=== PATIENT | male | born 1970 | race Caucasian/White ===

== ENCOUNTER 2018-03-08 13:16 | Emergency (ER) | payer OTHER ==
[~2018-03-08 13:16] MED LIST: ENALAPRIL MALEA10 MG PO; PROTONIX 40MG T40 MG PO
--- NOTE | 2018-03-08 14:05 | ED HEAD/FACIAL INJ COMPLAINT ---
History of Present Illness General Chief Complaint: Laceration Procedure Stated Complaint: LAC TO HEAD, WORK RELATED INJURY Source: patient Exam Limitations: no limitations Vital Signs & Intake/Output Vital Signs & Intake/Output Vital Signs Date Time Temp Pulse Resp B/P B/P Pulse O2 O2 Flow FiO2 Mean Ox Delivery Rate 03/08 1439 97.1 74 18 148/70 98 Room Air 03/08 1402 99 Room Air 03/08 1322 96.5 71 16 151/86 97 Room Air Allergies Coded Allergies: NO KNOWN ALLERGIES (03/08/18) Reconcile Medications Enalapril Maleate 10 MG TABLET 1 TAB PO DAILY BP (Reported) Pantoprazole Sodium (Protonix) 40 MG TAB 1 TAB PO DAILY GERD Triage Note: PT STOOD UP AND HIT A PIECE OF DUCTWORK WHILE WORKING. LAC TO TOP OF HEAD. UNK TETANUS. Triage Nurses Notes Reviewed? yes Onset: Abrupt Severity: moderate Location: parietal Method of Injury: direct blow HPI: 47-year-old male presents emergency department complaining of laceration to scalp after head injury at work prior to arrival. Patient states that he was standing up when he accidentally hit his head on a sharp metal object. Patient states that there was significant bleeding which she controlled with the Tylenol prior to arrival. Patient denies significant headache, visual changes, neck pain, confusion, nausea. Past History Travel History Traveled to [place] past 21 day No Medical History Any Pertinent Medical History? see below for history Neurological: NONE EENT: allergies Cardiovascular: hypertension, hyperlipidemia Respiratory: NONE Gastrointestinal: NONE Hepatic: NONE Renal: NONE Musculoskeletal: NONE Psychiatric: NONE Endocrine: NONE Blood Disorders: NONE Cancer(s): NONE Tetanus Vaccine: 03/08/18 Surgical History Surgical History: non-contributory Psychosocial History What is your primary language Nigerian Tobacco Use: Never used Family History Hx Contributory? No Review of Systems Review of Systems Constitutional: Reports: no symptoms. EENTM: Reports: no symptoms. Respiratory: Reports: no symptoms. Cardiovascular: Reports: no symptoms. GI: Reports: no symptoms. Genitourinary: Reports: no symptoms. Musculoskeletal: Reports: see HPI. Skin: Reports: see HPI. Neurological/Psychological: Reports: no symptoms. Hematologic/Endocrine: Reports: no symptoms. Immunologic/Allergic: Reports: no symptoms. All Other Systems: Reviewed and Negative Physical Exam Physical Exam General Appearance: well developed/nourished, no apparent distress, alert, awake Head: 4 cm linear laceration to right parietal scalp Eyes: Bilateral: normal appearance, PERRL, EOMI. Ears, Nose, Throat: normal pharynx, hearing grossly normal Neck: normal inspection, supple, full range of motion Respiratory: no respiratory distress Back: normal inspection, normal range of motion Extremities: normal inspection, normal range of motion Psychiatric: awake, alert, oriented x 3 Cranial Nerves: normal hearing, normal speech, PERRL Coordination/Gait: normal gait Motor/Sensory: no motor/sensory deficits Skin: Laceration as mentioned above Progress Differential Diagnosis: ICH, skull fracture, scalp laceration, hematoma Plan of Care: Scalp laceration closed using mine. Patient tolerated the procedure well. He is neurologically intact, no evidence of focal neurologic deficit. He answers questions readily, ambulatory with a steady gait. Low suspicion for acute intracranial abnormality at this time. Patient to follow-up with occupational medicine. He was educated on signs and symptoms of infection and concussion. The patient agrees with the plan of care. Departure Departure Disposition: HOME OR SELF CARE Condition: Stable Clinical Impression Primary Impression: Laceration Secondary Impressions: Minor head injury Qualifiers: Encounter type: initial encounter Qualified Code: S09.90XA - Unspecified injury of head, initial encounter Referrals: Mary BEJARANO,Fan Jackson (PCP/Family) Additional Instructions: Keep area clean and dry. You may get mine wet however no heavy scrubbing to the area. Have someone look at this area to monitor for signs of redness, swelling, warmth. With any of these symptoms please return to the emergency department. Return here or follow-up with occupational medicine in 7 days for removal of mine. Please note that there might be incidental findings in your evaluation that are unrelated to the current emergency department visit. Please notify your primary care doctor about this emergency department visit in order to obtain and review all of the testing performed so that these incidental findings can be monitored as needed. If you had an x-ray performed, please understand that some fractures may not be seen on the initial set of x-rays. If your symptoms persist you might need a repeat set of x-rays to check for such a fracture. If you had a laceration evaluated, please understand that foreign bodies such as glass or wood may not be visible to the naked eye or on plain x-rays. If the wound becomes red, swollen, increasingly more painful or if there is any drainage from the wound, please have it reevaluated by a physician for the possibility of a retained foreign body. If you're unable to follow up as outlined in the discharge instructions please return to the emergency department. Thank you for choosing the [facility] Emergency Department for your care. It was a pleasure to serve you today. Departure Forms: Customer Survey General Discharge Information Industrial Accident Report Procedures Laceration/Wound Repair Laceration/Wound Repair: Wound Location: scalp Wound's Depth, Shape: linear Wound Length (cm): 4 Wound Explored: irrigated extensively Irrigated w/ Saline (ccs): 200 Betadine Prep? Yes Anesthesia: 1% lidocaine Volume Anesthetic (ccs): 7 Wound Repaired With: mine Suture Size/Type: mine Number of Sutures: 7 Date of Last Tetanus: 03/08/18 Tetanus Status: up to date Progress: Mine placed by PA student with my direct supervision. Patient tolerated the procedure well.
[2018-03-08 14:39] VITALS: BP 148/70
== END 2018-03-08 14:39 ==
LOC: ERH 13:16
DX: S01.01XA Laceration without foreign body of scalp, initial encounter (principal); W22.8XXA Striking against or struck by other objects, initial encounter; Y93.89 Activity, other specified; Y92.9 Unspecified place or not applicable
CPT/HCPCS: 90471; 90714; J2001